=== PATIENT | female | born 1995 | race Caucasian/White ===

== ENCOUNTER 2017-06-01 18:12 | Emergency (ER) | payer BC ==
--- NOTE | 2017-06-01 19:28 | EDPHY ---
H & P Stated Complaint: Left foot pain. Denies injury HPI/ROS: CHIEF COMPLAINT: Left foot pain HISTORY OF PRESENT ILLNESS: Patient complains of 2 days history of left foot pain. This is the midfoot. Gradual onset. Constant duration. [id number] steadily worsening. She feels that this is a stress fracture. She has no direct trauma, but she is an avid hiker and has been hiking even more than normal for her lately. She feels is related to this. She has no numbness or tingling. No redness. No bruising. No pain in the remainder of the extremity. No other associated complaints or modifying factors. ESTABLISHED ORTHOPEDIST: None REVIEW OF SYSTEMS: Ten systems reviewed and are negative unless otherwise noted in the HPI PAST MEDICAL HISTORY: Attention deficit hyperactivity disorder anxiety from Adderall PAST SURGICAL HISTORY: None SOCIAL HISTORY: Nonsmoker. Occasional alcohol. No illicit substance use. Currently a student at [employer]. Originally from [place] FAMILY HISTORY: Noncontributory EXAMINATION General Appearance: Alert, no distress Cardiovascular: Pulses normal throughout. Symmetric DP and PT pulses 2+ brisk cap refill Neurological: A&O, sensory symmetric, strength symmetric. No footdrop. Normal proprioception of the great toe on the affected foot Skin: Warm and dry, no rash and no ecchymosis. No lacerations abrasions contusions Extremities: Mild tenderness of the left midfoot. There is no crepitus or deformity. Range of motion is intact and symmetric to the right foot. No tenderness of the right reyes, right calcaneus or right proximal fibula. Psychiatric: Mood and affect normal DIFFERENTIAL DIAGNOSES: Including but not limited to fracture, sprain, strain, stress fracture, contusion MDM: 7:25 p.m. Left foot pain in a patient who is an avid hiker. She has a history consistent with possibility of stress fracture and that is her concern. X-ray has been ordered. She is neuro intact with no acute findings. No acute distress. 7:52 p.m. X-ray as read by me without aid of the radiologist reveals no obvious significant abnormality. There may be a subtle abnormality at the base of the 3rd metatarsal. I will place her in a postop shoe and crutches. 8:25 p.m. The I have discussed this with the patient. We discussed the possibility of stress fracture. Treat with postop shoe and crutches. Recommend that she remain nonweightbearing if it is painful. But she is weight-bearing as tolerated. I recommend follow up with Orthopedics for definitive care. She is comfortable with this plan and discharged home stable condition. ED Precautions: Worsening pain. Erythema, edema, cyanosis, pallor, paresthesia or anesthesia. Source: Patient Exam Limitations: No limitations - Personal History LMP (Females 10-55): 8-14 Days Ago Current Tetanus/Diphtheria Vaccine: Yes Current Tetanus Diphtheria and Acellular Pertussis (TDAP): Yes - Medical/Surgical History Hx Asthma: No Hx Chronic Respiratory Disease: No Hx Diabetes: No Hx Cardiac Disease: No Hx Renal Disease: No Hx Cirrhosis: No Hx Alcoholism: No Hx HIV/AIDS: No Hx Splenectomy or Spleen Trauma: No Other PMH: narcolepsy - Social History Smoking Status: Never smoked Constitutional: Initial Vital Signs Temperature (C) 98.2 F 06/01/17 18:36 Heart Rate 96 06/01/17 18:36 Respiratory Rate 15 06/01/17 18:36 Blood Pressure 111/77 06/01/17 18:36 O2 Sat (%) 90 L 06/01/17 18:36 O2 Delivery Mode Room Air Allergies/Adverse Reactions: amoxicillin Allergy (Verified 06/01/17 18:35) penicillin V Allergy (Verified 06/01/17 18:35) Sulfa (Sulfonamide Antibiotics) Allergy (Verified 06/01/17 18:35) Home Medications: Medication Instructions Recorded Adderall 30 mg Tablet 06/01/17 VENLAFAXINE HCL 06/01/17 Medical Decision Making - Diagnostics Imaging Results: Imaging Impressions Foot X-Ray 06/01/17 19:17 Impression: Mild osteophytosis of first metatarsal head. Departure - Departure Disposition: Home, Routine, Self-Care Clinical Impression: Sprain of foot, left Qualifiers: Encounter type: initial encounter Qualified Code(s): S93.602A - Unspecified sprain of left foot, initial encounter Condition: Good Instructions: Foot Fracture in Adults (ED), Foot Sprain (ED) Additional Instructions: 1. Weightbearing as tolerated 2. Recommend nonweightbearing of painful 3. Follow up with Orthopedics for definitive care 4. Contact the emergency department catalytic case operator if you have difficulty obtaining an appointment with Orthopedics 5. ED precautions as discussed Referrals: [facility] [Other] - As per Instructions
[2017-06-01 21:02] VITALS: BP 102/69; PULSE 80; RESP 18; TEMP 98.6; O2SAT 98
== END 2017-06-01 21:00 | disposition home or self-care (01) ==
DX: S93.602A Unspecified sprain of left foot, initial encounter (principal); X58.XXXA Exposure to other specified factors, initial encounter; Y93.01 Activity, walking, marching and hiking

== ENCOUNTER 2018-09-16 21:10 | Emergency (ER) | payer OTHER ==
[2018-09-16] MEDS ORDERED: ONDANSETRON 4 MG/2 ML VIAL IVP ONE (21:41)
--- NOTE | 2018-09-16 21:41 | EDPHY ---
H & P Stated Complaint: Dehydrated,takes Sodium oxibate, "hasn't eaten all day" Source: Patient Exam Limitations: No limitations - Personal History LMP (Females 10-55): 15-21 Days Ago Current Tetanus Diphtheria and Acellular Pertussis (TDAP): Yes - Medical/Surgical History Hx Asthma: No Hx Chronic Respiratory Disease: No Hx Diabetes: No Hx Cardiac Disease: No Hx Renal Disease: No Hx Cirrhosis: No Hx Alcoholism: No Hx HIV/AIDS: No Hx Splenectomy or Spleen Trauma: No Other PMH: narcolepsy - Social History Smoking Status: Never smoked Time Seen by Provider: 09/16/18 21:36 HPI/ROS: HPI: This is a 23-year-old female who presents with Chief Complaint: Dehydrated,takes Sodium oxibate, "hasn't eaten all day" Location: Body Quality: Feels dehydrated Duration: 3-4 days Signs and Symptoms: no fever, no nausea, no vomiting, no hematemesis, no blood in stool, no abdominal bloating, no diarrhea, no back pain, no urinary symptoms , no vaginal bleeding/discharge, no indigestion, no chest pain, no shortness of breath Timing: Acute, worsening Severity: Moderate Context: Patient is originally from [place] returns 4 days ago to [place], [place] with gradually worsening feelings of mind fogginess, fatigue,"I feel dehydrated." Patient has narcolepsy and takes Sodium Oxibate and Adderall. She denies any fever, urinary symptoms, abdominal pain, nausea, vomiting, body aches. Patient does report she has decreased appetite and has not eaten today. LMP 2-3 weeks ago. Modifying Factors: Regular medication Comment: ROS: A comprehensive 10 system review of systems is otherwise negative aside from elements mentioned in the history of present illness. MEDICAL/SURGICAL/SOCIAL HISTORY: Medical history: Narcolepsy Surgical history: Denies Social history: Originally from [place]. Family history noncontributory. CONSTITUTIONAL: Nontoxic-appearing young adult female, awake and alert, no obvious distress HEENT: Atraumatic and normocephalic, PERRL, EOMI. Nares patent; no rhinorrhea; no nasal mucosal edema. Tympanic membranes clear. Oropharynx clear, no exudate and moist pink mucosa. Airway patent. No lymphadenopathy. No meningismus. Cardiovascular: Normal S1/S2, regular rate, regular rhythm, without murmur rub or gallop. PULMONARY/CHEST: Symmetrical and nontender. Clear to auscultation bilaterally. Good air movement. No accessory muscle usage. ABDOMEN: Soft, nondistended, nontender, no rebound, no guarding, no peritoneal signs, no masses or organomegaly. No CVAT. EXTREMITIES: 2/2 pulses, strength 5/5, no deformities, no clubbing, no cyanosis or edema. NEUROLOGICAL: no focal neuro deficits. GCS 15. SKIN: Warm and dry, no erythema. no rash. Good capillary refill. (Penny Cortez) Constitutional: Initial Vital Signs Temperature (C) 36.7 C 09/16/18 21:17 Heart Rate 84 09/16/18 21:17 Respiratory Rate 17 09/16/18 21:17 Blood Pressure 114/77 09/16/18 21:17 O2 Sat (%) 97 09/16/18 21:17 O2 Delivery Mode Room Air O2 (L/minute) 2 Allergies/Adverse Reactions: amoxicillin Allergy (Verified 09/16/18 21:16) penicillin V Allergy (Verified 09/16/18 21:16) Sulfa (Sulfonamide Antibiotics) Allergy (Verified 09/16/18 21:16) Home Medications: Medication Instructions Recorded Adderall 30 mg Tablet 06/01/17 VENLAFAXINE HCL 06/01/17 Medical Decision Making ED Course/Re-evaluation: Vital signs reviewed and stable upon arrival. Placed on cardiac technician. IV access, laboratory studies ordered Patient given lactated Ringer's as patient reports that she has not to taking normal saline due to her narcolepsy medication and IV Zofran 4 mg Placed on 2 L nasal cannula oxygen for consideration of altitude sickness 2216: Labs reviewed. No signs of leukocytosis/anemia/platelet dysfunction/NANNETTE/ elevated LFTs/electrolyte imbalance/mono. Creatinine 0.8, sodium 133 2300: Reassessed patient who reports 90% improvement in symptoms. She has [facility]. This patient was seen under the supervision of my secondary supervising physician. I evaluated care for this patient with attending. Discussed this patient with Dr. Pedraza who did not see the patient. (Penny Cortez) I did not see this patient while she was in the emergency department. However her care was discussed with the PA while the patient was in the department. I agree with treatment plan and management (Aramis Pedraza) Differential Diagnosis: Differential diagnosis includes but is not limited to electrolyte imbalance, dehydration, viral syndrome, infectious mononucleosis, acute kidney injury, altitude sickness. (Penny Cortez) - Data Points Laboratory Results: Laboratory Results 09/16/18 21:40 09/16/18 21:40 09/16/18 09/16/18 09/16/18 22:09 21:40 21:40 WBC RBC Hgb Hct MCV MCH MCHC RDW Plt Count MPV Neut % (Auto) Lymph % (Auto) Nuckolls % (Auto) Eos % (Auto) Baso % (Auto) Nucleat RBC Rel Count Absolute Neuts (auto) Absolute Lymphs (auto) Absolute Monos (auto) Absolute Eos (auto) Absolute Basos (auto) Absolute Nucleated RBC Immature Gran % Immature Gran # Sodium 133 mEq/L L mEq/L (135-145) Potassium 3.7 mEq/L mEq/L (3.5-5.2) Chloride 102 mEq/L mEq/L (97-110) Carbon Dioxide 24 mEq/l mEq/l (22-31) Anion Gap 7 mEq/L mEq/L (6-14) BUN 10 mg/dL mg/dL (7-23) Creatinine 0.8 mg/dL mg/dL (0.6-1.0) Estimated GFR > 60 Glucose 87 mg/dL mg/dL (70-100) Calcium 9.4 mg/dL mg/dL (8.5-10.4) Total Bilirubin 0.7 mg/dL mg/dL (0.1-1.4) Conjugated Bilirubin 0.2 mg/dL mg/dL (0.0-0.5) Unconjugated Bilirubin 0.5 mg/dL mg/dL (0.0-1.1) AST 26 IU/L IU/L (14-46) ALT 25 IU/L IU/L (9-52) Alkaline Phosphatase 73 IU/L IU/L (38-126) Total Protein 7.3 g/dL g/dL (6.3-8.2) Albumin 4.5 g/dL g/dL (3.5-5.0) Beta HCG, Qual NEGATIVE Monoscreen NEGATIVE (NEGATIVE) 09/16/18 21:40 WBC 6.37 10^3/uL 10^3/uL (3.80-9.50) RBC 4.43 10^6/uL 10^6/uL (4.18-5.33) Hgb 13.3 g/dL g/dL (12.6-16.3) Hct 39.3 % % (38.0-47.0) MCV 88.7 fL fL (81.5-99.8) MCH 30.0 pg pg (27.9-34.1) MCHC 33.8 g/dL g/dL (32.4-36.7) RDW 12.6 % % (11.5-15.2) Plt Count 224 10^3/uL 10^3/uL (150-400) MPV 9.8 fL fL (8.7-11.7) Neut % (Auto) 65.8 % % (39.3-74.2) Lymph % (Auto) 23.7 % % (15.0-45.0) Nuckolls % (Auto) 8.2 % % (4.5-13.0) Eos % (Auto) 1.7 % % (0.6-7.6) Baso % (Auto) 0.3 % % (0.3-1.7) Nucleat RBC Rel Count 0.0 % % (0.0-0.2) Absolute Neuts (auto) 4.19 10^3/uL 10^3/uL (1.70-6.50) Absolute Lymphs (auto) 1.51 10^3/uL 10^3/uL (1.00-3.00) Absolute Monos (auto) 0.52 10^3/uL 10^3/uL (0.30-0.80) Absolute Eos (auto) 0.11 10^3/uL 10^3/uL (0.03-0.40) Absolute Basos (auto) 0.02 10^3/uL 10^3/uL (0.02-0.10) Absolute Nucleated RBC 0.00 10^3/uL 10^3/uL (0-0.01) Immature Gran % 0.3 % % (0.0-1.1) Immature Gran # 0.02 10^3/uL 10^3/uL (0.00-0.10) Sodium Potassium Chloride Carbon Dioxide Anion Gap BUN Creatinine Estimated GFR Glucose Calcium Total Bilirubin Conjugated Bilirubin Unconjugated Bilirubin AST ALT Alkaline Phosphatase Total Protein Albumin Beta HCG, Qual Monoscreen Medications Given: Discontinued Medications Lactated Ringer's (Lr) 1,000 mls @ 500 mls/hr IV EDNOW ONE Stop: 09/16/18 23:41 Last Admin: 09/16/18 21:47 Dose: 1,000 mls Ondansetron HCl (Zofran) 4 mg IVP EDNOW ONE Stop: 09/16/18 21:42 Last Admin: 09/16/18 21:50 Dose: 4 mg Departure - Departure Disposition: Home, Routine, Self-Care Clinical Impression: Medication side effects Narcolepsy Qualifiers: 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 Take medications as prescribed. Establish care at the [facility] for primary care provider. Referrals: [facility],. [Clinic] - As per Instructions
[2018-09-16] MEDS ORDERED: LR 1,000 ML IV ONE (21:42)
[2018-09-16 21:53] LABS: PLATELET COUNT 224 10^3/uL (150-400)
[2018-09-16 22:58] VITALS: BP 98/68
== END 2018-09-16 22:53 | disposition home or self-care (01) ==
DX: T88.7XXA Unspecified adverse effect of drug or medicament, initial encounter (principal); G47.421 Narcolepsy in conditions classified elsewhere with cataplexy
CPT/HCPCS: 96374; J2405